=== PATIENT | female | born 1950 | race Caucasian/White ===

== ENCOUNTER 2017-10-10 17:55 | Emergency (ER) | payer MEDICARE, OTHER ==
[~2017-10-10] VITALS: Ht 154.9 cm; Wt 68.9 kg
--- NOTE | 2017-10-10 18:29 | PHYS DOC ---
Past History Past Medical History: Anxiety, GERD, Hypertension, Other Past Surgical History: Other Alcohol Use: Rarely Drug Use: None Adult General Chief Complaint Chief Complaint: HAND PROBLEM HPI HPI Patient is a 67 year old female who presents with complaint of right hand pain. Patient states that yesterday at approximately 1500 she was trying to end her own home when she accidentally tripped on the landing and fell forward, striking her right hand into the hard wooden door of her home. Patient states that this caused her to jam her fourth and fifth fingers into the door. The patient states that currently she is having moderate to severe pain near the fourth and fifth MCP joints on the right hand. The patient states that she is able to move her fingers but not in full flexion. The patient denies any pain at the wrist or forearm. The patient came to the emergency department as she is concerned that she may have seriously injured her hand. Patient has not taken any medications or administered any treatment to her and since onset of injury. Review of Systems Review of Systems Constitutional: Denies fever or chills [] Eyes: Denies change in visual acuity, redness, or eye pain [] HENT: Denies nasal congestion or sore throat [] Musculoskeletal: Right hand injury[] Integument: Denies rash or skin lesions [] Neurologic: Denies headache, focal weakness or sensory changes [] All other systems were reviewed and found to be within normal limits, except as documented in this note. Allergies Allergies Allergies Coded Allergies Type Severity Reaction Last Updated Verified hydrocodone Allergy Mild 10/10/17 Yes morphine Allergy Mild 10/10/17 Yes Physical Exam Physical Exam Constitutional: Well developed, well nourished, no acute distress, non-toxic appearance. [] HENT: Normocephalic, atraumatic, bilateral external ears normal, oropharynx moist, no oral exudates, nose normal. [] Skin: Warm, dry, no erythema, no rash. [] Extremities: Moderate soft tissue swelling and ecchymosis present along the medial and dorsal aspect of the right hand near the fourth and fifth MCP joints bony tenderness to palpation over fourth and fifth metacarpals, full range of motion present in the right wrist, inability to fully flex at the fourth and fifth fingers of the right hand, capillary refill less than 2 seconds. [] Neurologic: Alert and oriented X 3, normal motor function, normal sensory function, no focal deficits noted. [] Psychologic: Affect normal, judgement normal, mood normal. [] Current Patient Data Vital Signs Vital Signs Date Time Temp Pulse Resp B/P (MAP) Pulse Ox O2 Delivery O2 Flow Rate FiO2 10/10/17 18:05 97.9 93 16 97 Room Air Lab Results Not performed EKG EKG Not performed[] Radiology/Procedures Radiology/Procedures [place] [id number] IMAGING REPORT Signed PATIENT: BHANU STEWART ACCOUNT: [id number] : 1950 LOCATION: ER AGE: 67 SEX: F EXAM STATUS: REG ER ORD. PHYSICIAN: SOURAV BARCLAY MD REASON: right hand injury PROCEDURE: HAND RIGHT 3V EXAM: Right hand, 3 views. HISTORY: Pain. COMPARISON: None. FINDINGS: Frontal, lateral and oblique views of the right hand are obtained. There is a mildly displaced fracture of the fifth metacarpal. No intra-articular fracture line extension is seen. There is approximately 1 cortical width displacement along the main fracture line. IMPRESSION: Mildly displaced fifth metacarpal fracture. Electronically signed by: Odessa Chow MD (10/10/2017 6:55 PM) [facility] DICTATED AND SIGNED BY: ODESSA CHOW MD DATE: 10/10/17 1854 CC: SOURAV BARCLAY MD; PCP,NO ~ [] Course & Med Decision Making Course & Med Decision Making Pertinent Labs and Imaging studies reviewed. (See chart for details) X-ray confirms fracture of the right fifth metacarpal. The patient was placed in an extended ulnar gutter splint by the emergency department prosthetic lab technician. My evaluation post splint application showed normal capillary refill and normal sensation in all 5 digits. Patient treated with [place] in the emergency department. Patient was referred to Dr. Shearer of hand surgery, however patient states that she is planning on returning home within the next week. I advised that the patient contact her primary doctor for referral to a hand surgeon near her home in [place] for follow-up in 7-10 days. Advised return emergency department for any worsening symptoms. Patient voiced understanding and in agreement with treatment plan. Dragon Disclaimer Dragon Disclaimer This electronic medical record was generated, in whole or in part, using a voice recognition dictation system. Departure Departure: Impression: Primary Impression: Fracture of fifth metacarpal bone of right hand Disposition: 01 HOME, SELF-CARE Condition: IMPROVED Referrals: [facility] (PCP) ARLEY FLOWERS MD Patient Instructions: Hand Fracture, Fifth Metacarpal Additional Instructions: You will need to call the office of Dr. Flowers and request an appointment with Dr. Shearer, a hand surgeon who visits Dr. Flowers's practice. You'll need to see Dr. Shearer in 7-10 days for reevaluation. Return to the emergency department for any worsening symptoms. Scripts Hydrocodone Bit/Acetaminophen (NORCO 5-325 TABLET) 1 Each Tablet 1-2 TAB PO Q4-6HRS PRN for PAIN, #30 TAB Prov: SOURAV BARCLAY MD 10/10/17 Problem Qualifiers Primary Impression: Fracture of fifth metacarpal bone of right hand Encounter type: initial encounter Fracture type: closed Metacarpal location : shaft Fracture alignment: nondisplaced Qualified Codes: S62.356A - Nondisplaced fracture of shaft of fifth metacarpal bone, right hand, initial encounter for closed fracture SOURAV BARCLAY MD October 10, 2017 18:29
--- NOTE | 2017-10-10 18:58 | RAD ---
EXAM: Right hand, 3 views. HISTORY: Pain. COMPARISON: None. FINDINGS: Frontal, lateral and oblique views of the right hand are obtained. There is a mildly displaced fracture of the fifth metacarpal. No intra-articular fracture line extension is seen. There is approximately 1 cortical width displacement along the main fracture line. IMPRESSION: Mildly displaced fifth metacarpal fracture. Electronically signed by: Odessa Justin MD (10/10/2017 6:55 PM) [facility]
[2017-10-10] MEDS ORDERED: HYDR-971 PO (19:04)
[2017-10-10 19:30] VITALS: BP 132/84
[2017-10-10] MEDS ORDERED: HYDROcodone/APAP 5/325MG 1 TAB TABLET PO ONE (19:30)
== END 2017-10-10 19:34 | disposition home or self-care (01) ==
LOC: ER 17:55
DX: S62.306A Unspecified fracture of fifth metacarpal bone, right hand, initial encounter for closed fracture (principal); K21.9 Gastro-esophageal reflux disease without esophagitis; I10 Essential (primary) hypertension; F41.9 Anxiety disorder, unspecified; Z88.5 Allergy status to narcotic agent; W01.198A Fall on same level from slipping, tripping and stumbling with subsequent striking against other object, initial encounter; Y93.89 Activity, other specified; Y99.8 Other external cause status; Y92.098 Other place in other non-institutional residence as the place of occurrence of the external cause
CPT/HCPCS: 29125; 73130; 99284

== ENCOUNTER → 2021-09-23 | Outpatient (CLI) | payer MEDICARE, OTHER ==
[~2021-09-23] MED LIST: HYDR-3165 PO
--- NOTE | 2021-09-23 17:02 | RAD ---
Exam Date: 09/23/2021 10:16 AM XR HAND_LEFT 3 VIEWS Indication: Pain. Reason: CHRONIC PAIN, RHEUMATOID ARTHRITIS / Spl. Instructions: / History: . FINDINGS/ IMPRESSION: Mild degenerative changes are noted. Cystic changes are seen in the proximal lunate. No definite er osive changes are identified. Bones demonstrate normal mineralization. No acute fracture or disloca tion. Alignment is maintained. Soft tissues are normal. Electronically signed by: Deejay Milian MD (09/23/2021 4:59 PM) [id number]
== END ==
LOC: RAD 10:09
PROVIDERS: ATTEND Family Medicine
DX: M19.042 Primary osteoarthritis, left hand (principal); M25.842 Other specified joint disorders, left hand
CPT/HCPCS: 73130